=== PATIENT | female | born 1990 | race African-American/Black ===

== ENCOUNTER 2016-09-23 17:19 | Emergency (ER) | payer OTHER, SELFPAY ==
[~2016-09-23] VITALS: Ht 167.6 cm; Wt 80.7 kg
[~2016-09-23 17:19] MED LIST: IBUPROFEN600 MG ORAL
[2016-09-23 17:37] VITALS: BP 122/73
--- NOTE | 2016-09-23 17:49 | Emergency Room Report ---
History of Present Illness General Chief Complaint: Sore Throat Source: Patient Present Illness HPI 25-year-old female presents to emergency Department complaining of fevers, tonsillar exudates, sore throat 9/10 in severity in addition to tonsillar swelling. Patient also reports recent ill contacts stating her brother has been diagnosed with strep as well. Patient stay she has been taking both Motrin and Tylenol for pain and fever control. She states pain is exacerbated upon swallowing. She denies cough patient denies nasal congestion or rhinorrhea. Patient denies swelling of the airway difficulty breathing, wheezing. Denies CP, Palpitations, LOC, AMS, dizziness, Changes in Vision, Sensation, paresthesias, or a sudden severe headache. Allergies: Coded Allergies: No Known Allergies (Unverified , 06/18/14) Patient History Past Medical History: see triage record Past Surgical History: none Pertinent Family History: none Last Menstrual Period: 09/07/16 Now: No Immunizations: UTD Reviewed Nursing Documentation: PMH: Agreed, PSxH: Agreed Nursing Documentation-PMH Past Medical History: No Stated History Review of Systems All Other Systems: negative except mentioned in HPI Physical Exam Vital Signs Date Time Temp Pulse Resp B/P Pulse Ox O2 Delivery O2 Flow Rate FiO2 09/23/16 17:26 98.2 76 16 122/73 99 Room Air Sp02 EP Interpretation: reviewed, normal General Appearance: no apparent distress, alert, GCS 15, non-toxic Head: normocephalic, atraumatic Eyes: bilateral eye PERRL, bilateral eye normal inspection ENT: hearing grossly normal, normal pharynx, no angioedema, normal voice, TMs + canals normal, uvula midline, tonsillar swelling, pharyngeal erythema, tonsillar exudate Neck: full range of motion, supple/symm/no masses Respiratory: chest non-tender, lungs clear, normal breath sounds, speaking full sentences Cardiovascular #1: regular rate, rhythm, no edema Rectal: deferred Musculoskeletal: back normal, gait/station normal, normal range of motion, non- tender, no calf tenderness Neurologic: alert, oriented x3, responsive, motor strength/tone normal, sensory intact, speech normal Psychiatric: judgement/insight normal, memory normal, mood/affect normal, no suicidal/homicidal ideation Skin: normal color, no rash, warm/dry, well hydrated Lymphatic: no adenopathy Medical Decision Making PA Attestation Dr. jordan is my supervising Physician whom patient management has been discussed with. Diagnostic Impression: Primary Impression: Pharyngitis, acute Qualified Codes: J02.9 - Acute pharyngitis, unspecified ER Course Pt. presents to the ED c/o : sore throat, tonsillar swelling, x 2 days with Fevers. - Reports ill contact : brother who was dx with strep. Ddx considered but are not limited to: pharyngitis, strep, [employer], ludwigs angina, URI Vital signs: are WNL, pt. is afebrile H&PE are most consistent with: pharyngitis presumed strep. ORDERS: None required at this time as the diagnosis is clinical ED INTERVENTIONS: none required at this time. DISCHARGE: At this time pt. is stable for d/c to home. Will provide printed patient care instructions, and any necessary prescriptions. Care plan and follow up instructions have been discussed with the patient prior to discharge. Last Vital Signs Date Time Temp Pulse Resp B/P Pulse Ox O2 Delivery O2 Flow Rate FiO2 09/23/16 17:37 98.2 70 16 122/73 99 Room Air Disposition: HOME, SELF-CARE Condition: Stable Scripts Acetaminophen* (TYLENOL EXTRA STRENGTH*) 500 Mg Tablet 500 MG ORAL Q6H Y for Mild Pain/Temp > 100.5, #30 TAB 0 Refills Prov: Aletha Howard 09/23/16 Amoxicillin* (AMOXIL*) 500 Mg Capsule 500 MG ORAL BID for 10 Days, #20 CAP Prov: Aletha Howard 09/23/16 Patient Instructions: Pharyngitis, [id number] Additional Instructions: Take medications as directed. Follow up with PCP in 3-5 days Return sooner to ED if new symptoms occur, or current symptoms become worse. Aletha Howard Sep 23, 2016 17:49
[2016-09-23] MEDS ORDERED: TYLENOL EXTRA500 MG ORAL (17:51)
[2016-09-23] MEDS ORDERED: AMOXICILLIN500 MG ORAL (17:51)
[2016-09-23 18:23] VITALS: BP 120/71
== END 2016-09-23 18:25 | disposition home or self-care (01) ==
LOC: EMR 17:54
DX: J02.9 Acute pharyngitis, unspecified (principal)
CPT/HCPCS: 99284

== ENCOUNTER 2016-10-03 19:06 | Emergency (ER) | payer OTHER ==
[~2016-10-03] VITALS: Ht 167.6 cm; Wt 81.2 kg
[~2016-10-03 19:06] MED LIST changes: +AMOXICILLIN500 MG ORAL; +TYLENOL EXTRA500 MG ORAL
[2016-10-03 19:59] VITALS: BP 124/84
[2016-10-03] MEDS ORDERED: NITROFURANTOIN100 M2 ORAL (21:46)
[2016-10-03] MEDS ORDERED: CLARITIN-D 241 EACH PO (21:48)
[2016-10-03 22:09] LABS: APPEARANCE,URINE CLEAR; KETONES,URINE 1+ (NEGATIVE); LEUKOCYTE ESTERASE ,URINE NEGATIVE (NEGATIVE); NITRITE,URINE NEGATIVE (NEGATIVE); PH,URINE 5 (4.5-8.0); PROTEIN,URINE 1+ (NEGATIVE); UROBILINOGEN,URINE NORMAL MG/DL (0.0-1.0)
[2016-10-03 22:19] VITALS: BP 124/84
[2016-10-03 22:19] LABS: BACTERIA,URINE FEW /HPF; RBC,URINE 0-2 /HPF (0 - 2); SQUAMOUS EPITHELIAL CELL,UR OCCASIONAL /LPF (NONE/OCC); WBC,URINE 0-2 /HPF (0 - 2)
[2016-10-03 22:20] LABS: MUCUS,URINE MANY /LPF (NONE/OCC)
--- NOTE | 2016-10-04 13:20 | Emergency Room Report ---
History of Present Illness General Chief Complaint: Female Urogenital Problems Source: Patient Present Illness HPI The patient is a 25-year-old female presenting with dysuria with white vaginal discharge which began one week prior. The patient denies any abdominal pain or flank pain. Patient also denies nausea, vomiting, fever, chills, hematuria. The patient denies street or yellow discharge. Patient denies foul odor or vaginal itching. The patient also admits to itchy eyes, sneezing, and nasal congestion. The patient states she's never been diagnosed with allergies. The patient has not tried any medications. Allergies: Coded Allergies: No Known Allergies (Unverified , 06/18/14) Patient History Past Medical History: see triage record Pertinent Family History: none Last Menstrual Period: 09/03/16 Now: No Reviewed Nursing Documentation: PMH: Agreed, PSxH: Agreed Nursing Documentation-PMH Past Medical History: No Stated History Review of Systems All Other Systems: negative except mentioned in HPI Physical Exam Vital Signs Date Time Temp Pulse Resp B/P Pulse Ox O2 Delivery O2 Flow Rate FiO2 10/03/16 19:49 98.4 74 14 124/84 98 Room Air Sp02 EP Interpretation: reviewed, normal General Appearance: no apparent distress, alert, GCS 15, non-toxic Head: normocephalic, atraumatic Eyes: bilateral eye PERRL, bilateral eye normal inspection ENT: hearing grossly normal, normal pharynx, no angioedema, normal voice, nasal congestion Neck: full range of motion, supple/symm/no masses Respiratory: chest non-tender, lungs clear, normal breath sounds, no respiratory distress, no accessory muscle use, no wheezing, speaking full sentences Cardiovascular #1: regular rate, rhythm, no edema Gastrointestinal: normal bowel sounds, non tender, soft, non-distended, no guarding, no rebound Genitourinary: normal inspection, no CVA tenderness Musculoskeletal: back normal, gait/station normal, normal range of motion, non- tender Neurologic: alert, oriented x3, responsive, motor strength/tone normal, sensory intact, speech normal Psychiatric: judgement/insight normal, memory normal, mood/affect normal, no suicidal/homicidal ideation Skin: normal color, no rash, warm/dry, well hydrated Lymphatic: no adenopathy Medical Decision Making PA Attestation Dr. Eldridge is my supervising physician. Patient management was discussed with my supervising physician Diagnostic Impression: Primary Impression: Urinary tract infection ER Course The patient is a 25-year-old female presenting for dysuria, vaginal discharge, and allergy symptoms Differential diagnosis considered: UTI, STD, PID, BV, vaginal yeast infection Differential diagnosis considered: Seasonal allergies, bronchitis, pneumonia, pharyngitis, sinusitis Physical exam: Vitals within normal limits. Afebrile. No apparent distress HEENT: Unremarkable except for nasal congestion. Abdomen soft and nontender. No CVA tenderness The patient has chosen to left for urinalysis results. The patient will be discharged home with a prescription for Macrobid and Claritin. The patient will call back for results. ER precautions are given Laboratory Tests Test 10/03/16 21:39 Urine Color Yellow Urine Appearance Clear Urine pH 5 (4.5-8.0) Urine Specific [place] 1.025 (1.005-1.035) Urine Protein 1+ (NEGATIVE) H Urine Glucose (UA) Negative (NEGATIVE) Urine Ketones 1+ (NEGATIVE) H Urine Occult Blood Negative (NEGATIVE) Urine Nitrite Negative (NEGATIVE) Urine Bilirubin Negative (NEGATIVE) Urine Urobilinogen Normal MG/DL (0.0-1.0) Urine Leukocyte Esterase Negative (NEGATIVE) Urine RBC 0-2 /HPF (0 - 2) Urine WBC 0-2 /HPF (0 - 2) Urine Squamous Epithelial Cells Occasional /LPF Urine Bacteria Few /HPF (NONE) Urine Mucus Many /LPF (NONE/OCC) H Urine HCG, Qualitative Negative Lab Results Impression There are few bacteria cells. Otherwise unremarkable Last Vital Signs Date Time Temp Pulse Resp B/P Pulse Ox O2 Delivery O2 Flow Rate FiO2 10/03/16 22:19 98.4 74 14 124/84 98 Room Air Status: improved Disposition: HOME, SELF-CARE Condition: Improved Scripts Loratadine/Pseudoephedrine (CLARITIN-D 24 HOUR TABLET) 1 Each Tab.er.24h 1 TAB PO DAILY, #15 TAB Prov: TERZIAN,TRINIDAD P.A. 10/03/16 Nitrofurantoin Monohyd/M-Cryst* (MACROBID 100 MG*) 100 Mg Capsule 100 MG ORAL EVERY 12 HOURS, #14 CAP Prov: TERZIAN,TRINIDAD P.A. 10/03/16 Patient Instructions: Urinary Tract Infection Additional Instructions: I discussed my findings with the patient. All questions and concerns have been answered. Treatment and medication compliance have been addressed. I advised the patient that they need to follow up with PMD in 3-5 days. Return to ED if symptoms worsen, new symptoms arise, or if needed for any reason. Patient verbalized understanding of discharge instructions. TRINIDAD OLIVER Oct 04, 2016 13:20
== END 2016-10-03 22:25 | disposition home or self-care (01) ==
LOC: EMR 20:07
DX: N39.0 Urinary tract infection, site not specified (principal)
CPT/HCPCS: 81003; 81025; 99284